=== PATIENT | female | born 1995 | race Caucasian/White ===

== ENCOUNTER 2020-03-11 06:31 | Inpatient (IN) ==
[2020-03-11] MEDS ORDERED: D5LR 1L W PITOCIN 10 UNITS/L 10 UNITS/1,000 ML BAG IV PRN (06:49)
[2020-03-11] MEDS ORDERED: DILAUDID INJ IVP PRN ×2 (06:49→19:11)
[2020-03-11] MEDS ORDERED: REGLAN INJ 10 MG VIAL IVP PRN ×3 (06:49→19:43)
[2020-03-11] MEDS ORDERED: PITOCIN IVP ONE (06:49)
[2020-03-11] MEDS ORDERED: PHENERGAN INJ 25 MG IM PRN ×2 (06:49→19:11)
[2020-03-11] MEDS ORDERED: STADOL INJ IVP PRN (06:51)
[2020-03-11] MEDS ORDERED: LR 1000 ML IV 1,000 ML IV ONE ×2 (06:57→18:08)
[2020-03-11] MEDS ORDERED: FENTANYL INJ 100 mcg ONE (06:57)
[2020-03-11] MEDS ORDERED: D5 1/2 NS 1L W PITOCIN 20 UNITS/L 20 UNITS/1,000 ML BAG IV ONE (06:58)
[2020-03-11] MEDS ORDERED: NAROPIN EPIDURAL 0.2% + FENTANYL 90MCG 60 ML EPI ONE ×2 (06:58→16:51)
[2020-03-11] MEDS ORDERED: D5 1/2 NS 1000 ML 1,000 ML IV SCH (07:00)
[2020-03-11 07:19] LABS: URIC ACID 5.9 mg/dL (2.6-6.0)
--- NOTE | 2020-03-11 07:34 | DR.OB ---
OB Quick Note - Assessment/Plan Assessment/Plan: L&D 03/11/20 at 7:11am S-No complaint. O-Afebrile,VSS AVV=[id number] with good LTV, +accel, no decel. CTX=mild, irreg. CVX=2cm/50%/-1/VTX AROM with clear fluid. IUPC and FSE placed. A-IUP at 38 3/7 weeks for induction PIH P-Begin pitocin induction F/U preeclamptic labs Anticipate
[2020-03-11] MEDS ORDERED: VERSED ONE (08:56)
[2020-03-11] MEDS ORDERED: PITOCIN ONE (08:56)
[2020-03-11] MEDS ORDERED: XYLOCAINE 2% and EPINEPHRINE 1:100,000 ONE ×2 (11:41→17:39)
[2020-03-11] MEDS ORDERED: XYLOCAINE 1 % (PLAIN) ONE (11:41)
--- NOTE | 2020-03-11 12:16 | DR.OB ---
OB Quick Note - Assessment/Plan Assessment/Plan: L&D 03/11/20 at 12:15pm Pitocin=20mu/min. S-No complaint. s/p epidural. O-Afebrile,VSS OAF=[id number] with good LTV, +accel, no decel. CTX=q 1 1/2 to 3 min., about 45-55mmHg CVX=3cm/75%/-1 A-IUP at 38 3/7 weeks for induction PIH P-Cont. pitocin induction Anticipate
[2020-03-11] MEDS ORDERED: ANCEF 1 GRAM IV PREMIX* 1 G/50 ML BAG IV ONE (17:26)
--- NOTE | 2020-03-11 17:35 | DR.OB ---
OB Quick Note - Assessment/Plan Assessment/Plan: L&D 03/11/20 at 5:20pm Pitocin=2mu/min. S-No complaint. O-Afebrile,VSS IBW=[id number] with poor LTV, occ. accel, some variables with late component CTX=q 1 1/2 to 2min., about 45-55mmHg CVX=7cm/75%/-1 (no change in 2 hours) A-IUP at 38 3/7 weeks with non-reassuring FHT distant from delivery PIH P-To C/S
[2020-03-11] MEDS ORDERED: DILAUDID INJ ONE (18:10)
[2020-03-11] MEDS ORDERED: ZOFRAN INJ 4 MG VIAL IVP PRN ×2 (19:11→19:43)
[2020-03-11] MEDS ORDERED: BENADRYL INJ 50 MG VIAL IVP PRN ×2 (19:11→19:43)
[2020-03-11] MEDS ORDERED: NARCAN INJ IVP PRN (19:43)
[2020-03-11] MEDS ORDERED: ADACEL or BOOSTRIX TDaP VACCINE IM ONE (19:43)
[2020-03-11] MEDS ORDERED: TORADOL 30 MG VIAL IVP PRN (19:43)
[2020-03-11] MEDS ORDERED: PERCOCET TAB 5/325 MG PO PRN (19:43)
[2020-03-11] MEDS ORDERED: D5 1/2 NS 1000 ML 1,000 ML with PITOCIN 20 UNITS IV SCH ×2 (20:00)
[2020-03-12 05:48] LABS: HEMATOCRIT 27.4 % (36.0-47.0); HEMOGLOBIN 9.4 g/dL (12.0-16.0)
[2020-03-12] MEDS ORDERED: PERCOCET TAB 5/325 MG PO PRN (06:22)
[2020-03-12] MEDS: FERROUS GLUCONATE PO SCH ×2 (07:21→16:26)
[2020-03-12] MEDS: MOTRIN TAB 800 MG PO PRN ×2 (08:50→17:22)
[2020-03-12] MEDS: COLACE CAP 100 MG PO SCH ×2 (09:12→20:29)
[2020-03-12] MEDS: PRENATAL PLUS PO SCH (09:12)
[2020-03-12] MEDS: MYLICON TAB 80 MG CHEW PO PRN (12:03)
[2020-03-12] MEDS: BACTROBAN TOPICAL OINT TOP SCH ×2 (14:57→22:00)
[2020-03-13] MEDS: MYLICON TAB 80 MG CHEW PO PRN (03:33)
[2020-03-13] MEDS: MOTRIN TAB 800 MG PO PRN (03:33)
[2020-03-13] MEDS: BACTROBAN TOPICAL OINT TOP SCH (05:21)
[2020-03-13] MEDS: COLACE CAP 100 MG PO SCH (08:53)
[2020-03-13] MEDS: FERROUS GLUCONATE PO SCH (08:53)
[2020-03-13] MEDS: PRENATAL PLUS PO SCH (08:53)
[2020-03-13 12:25] VITALS: BP 113/60
== END 2020-03-13 15:50 | disposition home or self-care (01) | DRG 788 ==
LOC: LD 06:31 → MED/SURG 20:26
PROVIDERS: ADMIT Specialist; ATTEND Specialist
DX: D50.8 Other iron deficiency anemias; O13.3 Gestational [pregnancy-induced] hypertension without significant proteinuria, third trimester; O77.9 Labor and delivery complicated by fetal stress, unspecified; Z3A.38 38 weeks gestation of pregnancy; Z37.0 Single live birth
CPT/HCPCS: 36415; 83615; 84450; 84460; 84550; 85014; 85018; 85384; 85610; 85730; A4216; A4222; J0690; J2001; J2250; J2590; J3010; J3490; J7120; S0197; S5010